=== PATIENT | female | born 1995 ===

== ENCOUNTER → 2019-03-09 | Outpatient (CLI) | payer OTHER | END | disposition home or self-care (01) | LOC: LAB SHORT 11:47 → LAB EV 11:47 | DX: J02.9 Acute pharyngitis, unspecified (principal) | CPT/HCPCS: 87081 ==

== ENCOUNTER → 2021-06-03 | Outpatient (CLI) | payer OTHER | END | disposition home or self-care (01) | LOC: LAB SHORT 14:50 | DX: O03.9 Complete or unspecified spontaneous abortion without complication (principal) | CPT/HCPCS: 84702 ==

== ENCOUNTER → 2022-01-05 | Outpatient (CLI) | payer BC ==
[2022-01-07 01:07] LABS: CHLAMYDIA TRACHOMATIS, NAA Negative (Negative)
== END ==
LOC: LAB SHORT 14:30 → LAB 14:30
PROVIDERS: Obstetrics & Gynecology
DX: Z34.81 Encounter for supervision of other normal pregnancy, first trimester (principal)
CPT/HCPCS: 87491; 87591

== ENCOUNTER 2022-08-28 16:25 | Inpatient (IN) | payer BC ==
[~2022-08-28] VITALS: Ht 167.6 cm; Wt 88.6 kg
[2022-08-28 16:32] VITALS: BP 128/88
[2022-08-28 17:07] VITALS: BP 123/80
[2022-08-28 19:09] LABS: Hematocrit 36.8 % (33.0-51.0); Mean Corpuscular HGB 30.7 pg (26.0-34.0); Mean Corpuscular HGB Conc 35.3 g/dL (31.5-36.5); Mean Corpuscular Volume 87 fL (80-100); Mean Platelet Volume 11.7 fL (9.1-12.4); Platelet Count 204 K/mm3 (150-400); RDW Coefficient Variation 13.8 % (11.7-14.2); RDW Standard Deviation 43.4 fL (35.1-46.3); Red Blood Cell Count 4.23 M/mm3 (3.80-5.20)
[2022-08-28 19:37] LABS: IMMATURE GRAN ABSOLUTE AUTO 0.12 K/mm3 (0.00-0.10); IMMATURE GRAN PERCENT AUTO 1 % (0-1); White Blood Cell Count 17.87 K/mm3 (4.00-11.30)
[2022-08-28 19:39] LABS: BAND PERCENT MAN 10 % (0-8); BASOPHILS PERCENT MAN 0 % (0-2); EOSINOPHILS ABSOLUTE MAN 0.35 K/mm3 (0.00-0.68); EOSINOPHILS PERCENT MAN 2 % (0-6); LYMPHOCYTES ABSOLUTE MAN 2.32 K/mm3 (0.84-5.20); LYMPHOCYTES PERCENT MAN 13 % (21-46); MONOCYTES ABSOLUTE MAN 0.89 K/mm3 (0.16-1.47); MONOCYTES PERCENT MAN 5 % (4-13); NEUTROPHILS ABSOLUTE MAN 14.29 K/mm3 (1.96-9.15); SEG NEUTROPHILS PERCENT MAN 70 % (41-73); TOTAL CELLS COUNTED 100
[2022-08-28 23:57] VITALS: BP 137/74
[2022-08-29] VITALS (12 sets, daily range): BP systolic 99–156; BP diastolic 56–100
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
[2022-08-29 05:50] LABS: BASOPHILS ABSOLUTE AUTO 0.05 K/mm3 (0.00-0.23); BASOPHILS PERCENT AUTO 0 % (0-2); EOSINOPHILS PERCENT AUTO 0 % (0-6); Hematocrit 31.4 % (33.0-51.0); Hemoglobin 10.9 g/dL (11.5-16.0); IMMATURE GRAN ABSOLUTE AUTO 0.19 K/mm3 (0.00-0.10); IMMATURE GRAN PERCENT AUTO 1 % (0-1); LYMPHOCYTES ABSOLUTE AUTO 1.21 K/mm3 (0.84-5.20); LYMPHOCYTES PERCENT AUTO 5 % (21-46); MONOCYTES ABSOLUTE AUTO 2.09 K/mm3 (0.16-1.47); MONOCYTES PERCENT AUTO 9 % (4-13); Mean Corpuscular HGB 30.9 pg (26.0-34.0); Mean Corpuscular HGB Conc 34.7 g/dL (31.5-36.5); Mean Corpuscular Volume 89 fL (80-100); Mean Platelet Volume 11.5 fL (9.1-12.4); NEUTROPHILS ABSOLUTE AUTO 19.79 K/mm3 (1.96-9.15); NEUTROPHILS PERCENT AUTO 85 % (41-73); Platelet Count 183 K/mm3 (150-400); RDW Coefficient Variation 13.9 % (11.7-14.2); RDW Standard Deviation 44.6 fL (35.1-46.3); Red Blood Cell Count 3.53 M/mm3 (3.80-5.20); White Blood Cell Count 23.33 K/mm3 (4.00-11.30)
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
--- NOTE | 2022-08-29 14:15 | NUR ---
REPORTS DOING WELL, REPORTS DUE TO FEED BABY SOON, PT KNOWS TO CALL FOR HELP IF NEEDS HELP LATCHING BABY ON
[2022-08-30 03:32] VITALS: BP 110/71
[2022-08-30 07:33] VITALS: BP 128/83
--- NOTE | 2022-08-30 11:05 | NUR ---
D/C HOME WITH BABY
== END 2022-08-30 11:10 | disposition home or self-care (01) | DRG 807 ==
LOC: BC 16:25 → OBS 16:25 → BC 18:41 → OBS 18:41 → BC 08-30 11:10
PROVIDERS: ADMIT Obstetrics & Gynecology
PROC: 10E0XZZ Delivery of Products of Conception, External Approach (ICD-10-PCS; principal; 2022-08-28)
PROC: 0HQ9XZZ Repair Perineum Skin, External Approach (ICD-10-PCS; 2022-08-28)
DX: O70.0 First degree perineal laceration during delivery (principal); Z37.0 Single live birth; Z3A.39 39 weeks gestation of pregnancy; Z90.89 Acquired absence of other organs; Z88.0 Allergy status to penicillin
CPT/HCPCS: 36415; 59025; 85025; 86850; 86900; 86901; A9270; J1885; J2590; J3010; J7120

== ENCOUNTER → 2023-04-17 | Outpatient (CLI) | payer BC | LOC: LAB SHORT 11:00 → LAB 11:00 | DX: R30.0 Dysuria (principal); R10.30 Lower abdominal pain, unspecified; R35.0 Frequency of micturition | CPT/HCPCS: 87086 ==